=== PATIENT | male | born 1990 | race American Indian/Alaskan Native ===

== ENCOUNTER 2019-02-16 17:42 | Emergency (ER) | payer BC, OTHER ==
[2019-02-16 18:02] VITALS: BP 132/87
--- NOTE | 2019-02-16 18:02 | Emergency Department Report ---
Chief Complaint: Headache Stated Complaint: HEADACHE X 1DAY/DIZZY Time Seen by Provider: 02/16/19 17:59 - HPI History of Present Illness: pt presents to the frontal DEAL that began last night congestion x 2 weeks rhinorrhea no fever has not taken anything for the DEAL or for congestion/rhinorrhea no PCP (+) smoker MSE screening note: Focused history and physical exam performed. ED Disposition for MSE Condition: Stable
[2019-02-16] MEDS ORDERED: DECADRON IM ONE (19:33)
[2019-02-16] MEDS ORDERED: REGLAN PO ONE (19:34)
[2019-02-16] MEDS ORDERED: BENADRYL PO ONE (19:34)
[2019-02-16] MEDS ORDERED: TYLENOL PO ONE (19:34)
--- NOTE | 2019-02-16 20:19 | Emergency Department Report ---
ED Headache HPI - General Chief Complaint: Headache Stated Complaint: HEADACHE X 1DAY/DIZZY Time Seen by Provider: 02/16/19 17:59 - History of Present Illness Initial Comments: pt presents to the frontal DEAL that began last night congestion x 2 weeks rhinorrhea no fever has not taken anything for the DEAL or for congestion/rhinorrhea no PCP (+) smoker Timing/Duration: other (2 weeks ) Quality: moderate Head Injury Location: frontal Recent Head Trauma: occasional headaches Modifying Factors: improves with: movement, other (activity ) Associated Symptoms: nausea/vomiting, nasal congestion, nasal drainage, other (photophobia ) Allergies/Adverse Reactions: Allergies No Known Allergies Allergy (Unverified 08/04/15 09:32) Home Medications: Ambulatory Orders Promethazine [Phenergan TAB] 25 mg PO Q8HR PRN #15 tab 08/04/15 Ondansetron [Zofran Odt] 4 mg PO Q6H PRN #10 tab.rapdis 09/12/15 Ibuprofen [Motrin 800 MG tab] 800 mg PO Q8HR PRN #30 tablet 09/26/15 traMADol [Ultram 50 MG tab] 50 mg PO Q4HR PRN #15 tablet 09/26/15 HYDROcodone/APAP 5-325 [[place] 5/325] 1 each PO Q6HR PRN #8 tablet 10/23/15 Ondansetron [Zofran Odt] 4 mg SL Q6H PRN #8 tab.rapdis 10/23/15 Acetaminophen [Tylenol Extra Strength] 1,000 mg PO QID PRN #30 tablet 02/16/19 Amoxicillin/Potassium Clav [Augmentin 875-125 Tablet] 1 each PO BID 10 Days #20 tablet 02/16/19 Metoclopramide [Reglan] 10 mg PO Q6H #30 tablet 02/16/19 diphenhydrAMINE [Benadryl CAP] 25 mg PO Q6HR PRN #30 capsule 02/16/19 ED Review of Systems ROS: Stated complaint: HEADACHE X 1DAY/DIZZY Other details as noted in HPI Constitutional: denies: chills, fever Eyes: denies: eye pain, eye discharge, vision change ENT: ear pain, congestion. denies: throat pain Respiratory: denies: cough, shortness of breath, wheezing Cardiovascular: denies: chest pain, palpitations Endocrine: no symptoms reported Gastrointestinal: nausea, vomiting. denies: abdominal pain, diarrhea Genitourinary: denies: urgency, dysuria Musculoskeletal: denies: back pain, joint swelling, arthralgia Skin: denies: rash, lesions Neurological: headache. denies: weakness, numbness, paresthesias, confusion, vertigo Psychiatric: denies: anxiety, depression Hematological/Lymphatic: denies: easy bleeding, easy bruising ED Past Medical Hx - Past Medical History Previous Medical History?: No - Surgical History Past Surgical History?: No - Social History Smoking Status: Unknown if ever smoked Substance Use Type: None - Medications Home Medications: Home Medications Medication Instructions Recorded Confirmed Last Taken Type Promethazine [Phenergan TAB] 25 mg PO Q8HR PRN #15 tab 08/04/15 Unknown Rx Ondansetron [Zofran Odt] 4 mg PO Q6H PRN #10 tab.rapdis 09/12/15 Unknown Rx Ibuprofen [Motrin 800 MG tab] 800 mg PO Q8HR PRN #30 tablet 09/26/15 Unknown Rx traMADol [Ultram 50 MG tab] 50 mg PO Q4HR PRN #15 tablet 09/26/15 Unknown Rx HYDROcodone/APAP 5-325 [[place] 1 each PO Q6HR PRN #8 tablet 10/23/15 Unknown Rx 5/325] Ondansetron [Zofran Odt] 4 mg SL Q6H PRN #8 tab.rapdis 10/23/15 Unknown Rx Acetaminophen [Tylenol Extra 1,000 mg PO QID PRN #30 tablet 02/16/19 Unknown Rx Strength] Amoxicillin/Potassium Clav 1 each PO BID 10 Days #20 tablet 02/16/19 Unknown Rx [Augmentin 875-125 Tablet] Metoclopramide [Reglan] 10 mg PO Q6H #30 tablet 02/16/19 Unknown Rx diphenhydrAMINE [Benadryl CAP] 25 mg PO Q6HR PRN #30 capsule 02/16/19 Unknown Rx ED Physical Exam - General Limitations: No Limitations General appearance: alert, in no apparent distress - Head Head exam: Present: atraumatic, normocephalic - Eye Eye exam: Present: normal appearance, PERRL, EOMI Pupils: Present: normal accommodation - ENT ENT exam: Present: normal exam, normal orophraynx, mucous membranes moist, TM's normal bilaterally, normal external ear exam - Expanded ENT Exam Expanded Ear exam: Present: normal external inspection TM/Canal exam: Erythema: Left TM Mouth exam: Absent: trismus Throat exam: Positive: normal inspection, other (uvula midline no stridor no exudate no lesion ) - Neck Neck exam: Present: normal inspection, full ROM. Absent: tenderness, meningismus, lymphadenopathy, thyromegaly - Respiratory Respiratory exam: Present: normal lung sounds bilaterally. Absent: respiratory distress, wheezes, rhonchi, chest wall tenderness - Cardiovascular Cardiovascular Exam: Present: regular rate, normal rhythm, normal heart sounds. Absent: systolic murmur, diastolic murmur, rubs, gallop - GI/Abdominal GI/Abdominal exam: Present: soft, normal bowel sounds. Absent: tenderness, rebound, bruit, hernia - Rectal Rectal exam: Present: deferred - Extremities Exam Extremities exam: Present: normal inspection, full ROM, normal capillary refill. Absent: tenderness - Back Exam Back exam: Present: normal inspection, full ROM, muscle spasm. Absent: tenderness, CVA tenderness (R), CVA tenderness (L), paraspinal tenderness, rash noted - Neurological Exam Neurological exam: Present: alert, oriented X3, CN II-XII intact, normal gait. Absent: motor sensory deficit, reflexes normal - Psychiatric Psychiatric exam: Present: normal affect, normal mood - Skin Skin exam: Present: warm, dry, intact, normal color. Absent: rash ED Course Vital Signs 02/16/19 02/16/19 18:00 19:46 Temperature 98.6 F Pulse Rate 104 H Respiratory 18 18 Rate Blood Pressure 132/87 O2 Sat by Pulse 99 Oximetry ED Medical Decision Making - Radiology Data Radiology results: report reviewed, image reviewed - Medical Decision Making Patient was resolved . Left AOM /Sinusitis, and Augmentin Tylenol Benadryl Reglan patient referred to [facility]. pt verbalized agreement and understanding of same Critical care attestation.: If time is entered above; I have spent that time in minutes in the direct care of this critically ill patient, excluding procedure time. ED Disposition Clinical Impression: Headache Qualifiers: Headache type: unspecified Headache chronicity pattern: unspecified pattern Intractability: intractable Qualified Code(s): R51 - Headache Sinusitis Qualifiers: Sinusitis location: maxillary Chronicity: acute Recurrence: non-recurrent Qualified Code(s): J01.00 - Acute maxillary sinusitis, unspecified Disposition: - TO HOME OR SELFCARE Is pt being admited?: No Does the pt Need Aspirin: No Condition: Stable Instructions: Acute Headache (ED), Sinusitis (ED) Prescriptions: Amoxicillin/Potassium Clav [Augmentin 875-125 Tablet] 1 each PO BID 10 Days #20 tablet diphenhydrAMINE [Benadryl CAP] 25 mg PO Q6HR PRN #30 capsule PRN Reason: Headache Metoclopramide [Reglan] 10 mg PO Q6H #30 tablet Acetaminophen [Tylenol Extra Strength] 1,000 mg PO QID PRN #30 tablet PRN Reason: Headache Referrals: [facility] [Outside] - 3-5 Days Forms: Work/School Release Form(ED) Time of Disposition: 20:29
== END 2019-02-16 20:33 | disposition home or self-care (01) ==
LOC: ED 17:42
DX: J01.00 Acute maxillary sinusitis, unspecified (principal)
CPT/HCPCS: 96372; 99282; J1100

== ENCOUNTER 2020-03-10 22:41 | Emergency (ER) | payer SELFPAY ==
[2020-03-10 23:57] VITALS: BP 124/93
--- NOTE | 2020-03-11 01:01 | Emergency Department Report ---
ED Lower Extremity HPI - General Chief Complaint: Extremity Injury, Lower Stated Complaint: ANKLE INJURY Time Seen by Provider: 03/11/20 00:34 Source: patient, EMS Mode of arrival: Wheelchair Limitations: No Limitations - History of Present Illness Initial Comments: This is a 29-year-old male presents the emergency department via EMS for evaluation of right ankle pain. Patient was reportedly running and jumping over a fence when he landed on his right ankle wrong. He reports pain is 10 out of 10 aggravated with any movement and weightbearing. He denies any additional injuries. Patient denies any known past medical history, current medication use or known allergies to medications. - Related Data Previous Rx's Medication Instructions Recorded Last Taken Type Promethazine [Phenergan TAB] 25 mg PO Q8HR PRN #15 tab 08/04/15 Unknown Rx Ondansetron [Zofran Odt] 4 mg PO Q6H PRN #10 tab.rapdis 09/12/15 Unknown Rx Ibuprofen [Motrin 800 MG tab] 800 mg PO Q8HR PRN #30 tablet 09/26/15 Unknown Rx traMADoL [Ultram 50 MG tab] 50 mg PO Q4HR PRN #15 tablet 09/26/15 Unknown Rx HYDROcodone/APAP 5-325 [[place] 1 each PO Q6HR PRN #8 tablet 10/23/15 Unknown Rx 5/325] Ondansetron [Zofran Odt] 4 mg SL Q6H PRN #8 tab.rapdis 10/23/15 Unknown Rx Acetaminophen [Tylenol Extra 1,000 mg PO QID PRN #30 tablet 02/16/19 Unknown Rx Strength] Amoxicillin/Potassium Clav 1 each PO BID 10 Days #20 tablet 02/16/19 Unknown Rx [Augmentin 875-125 Tablet] Metoclopramide [Reglan] 10 mg PO Q6H #30 tablet 02/16/19 Unknown Rx diphenhydrAMINE [Benadryl CAP] 25 mg PO Q6HR PRN #30 capsule 02/16/19 Unknown Rx Acetaminophen/Codeine [Tylenol 1 tab PO Q6H PRN #12 tab 03/11/20 Unknown Rx /Codeine # 3 tab] Allergies Allergy/AdvReac Type Severity Reaction Status Date / Time No Known Allergies Allergy Unverified 08/04/15 09:32 ED Review of Systems ROS: Stated complaint: ANKLE INJURY Other details as noted in HPI Comment: All other systems reviewed and negative Constitutional: denies: chills, fever Eyes: denies: eye pain, eye discharge, vision change ENT: denies: ear pain, throat pain Respiratory: denies: cough, shortness of breath, wheezing Cardiovascular: denies: chest pain, palpitations Endocrine: no symptoms reported Gastrointestinal: denies: abdominal pain, nausea, diarrhea Genitourinary: denies: urgency, dysuria Musculoskeletal: as per HPI, arthralgia. denies: back pain, joint swelling Skin: denies: rash, lesions Neurological: denies: headache, weakness, paresthesias Psychiatric: denies: anxiety, depression Hematological/Lymphatic: denies: easy bleeding, easy bruising ED Past Medical Hx - Past Medical History Previous Medical History?: No - Surgical History Past Surgical History?: No - Social History Smoking Status: Current Every Day Smoker - Medications Home Medications: Home Medications Medication Instructions Recorded Confirmed Last Taken Type Promethazine [Phenergan TAB] 25 mg PO Q8HR PRN #15 tab 08/04/15 Unknown Rx Ondansetron [Zofran Odt] 4 mg PO Q6H PRN #10 tab.rapdis 09/12/15 Unknown Rx Ibuprofen [Motrin 800 MG tab] 800 mg PO Q8HR PRN #30 tablet 09/26/15 Unknown Rx traMADoL [Ultram 50 MG tab] 50 mg PO Q4HR PRN #15 tablet 09/26/15 Unknown Rx HYDROcodone/APAP 5-325 [[place] 1 each PO Q6HR PRN #8 tablet 10/23/15 Unknown Rx 5/325] Ondansetron [Zofran Odt] 4 mg SL Q6H PRN #8 tab.rapdis 10/23/15 Unknown Rx Acetaminophen [Tylenol Extra 1,000 mg PO QID PRN #30 tablet 02/16/19 Unknown Rx Strength] Amoxicillin/Potassium Clav 1 each PO BID 10 Days #20 tablet 02/16/19 Unknown Rx [Augmentin 875-125 Tablet] Metoclopramide [Reglan] 10 mg PO Q6H #30 tablet 02/16/19 Unknown Rx diphenhydrAMINE [Benadryl CAP] 25 mg PO Q6HR PRN #30 capsule 02/16/19 Unknown Rx Acetaminophen/Codeine [Tylenol 1 tab PO Q6H PRN #12 tab 03/11/20 Unknown Rx /Codeine # 3 tab] ED Physical Exam - General Limitations: No Limitations General appearance: alert, in no apparent distress, appears intoxicated - Head Head exam: Present: atraumatic, normocephalic - Eye Eye exam: Present: normal appearance, PERRL, EOMI Pupils: Present: normal accommodation - ENT ENT exam: Present: mucous membranes moist - Neck Neck exam: Present: normal inspection - Respiratory Respiratory exam: Present: normal lung sounds bilaterally. Absent: respiratory distress, wheezes, rales, rhonchi, stridor - Cardiovascular Cardiovascular Exam: Present: regular rate, normal rhythm, normal heart sounds. Absent: systolic murmur, diastolic murmur, rubs, gallop - GI/Abdominal GI/Abdominal exam: Present: soft, normal bowel sounds. Absent: distended, tenderness, guarding, rebound, rigid - Rectal Rectal exam: Present: deferred - Extremities Exam Extremities exam: Present: normal inspection, tenderness, joint swelling, other (There is edema and pain to the medial and lateral ankle. There is no tenderness to the lower leg. The compartments are soft. The patient is able to flex and extend the ankle without pain out of proportion to exam. There are normal DP and PT pulses. There is no tenderness of the bilateral knees hips and the pelvis is stable. There is no midline cervical, thoracic or lumbar tenderness. ). Absent: full ROM - Back Exam Back exam: Present: normal inspection - Neurological Exam Neurological exam: Present: alert, oriented X3 - Psychiatric Psychiatric exam: Present: normal affect, normal mood - Skin Skin exam: Present: warm, dry, intact, normal color. Absent: rash ED Course Vital Signs 03/10/20 23:27 Temperature 99.1 F Pulse Rate 110 H Respiratory 18 Rate Blood Pressure 124/93 O2 Sat by Pulse 98 Oximetry - Reevaluation(s) Reevaluation #1: 03/11/20 01:13 Patient continues to try to leave the emergency department. Police Department is here and apparently the patient has a warrant for arrest. Patient was educated that he does have a fracture in his distal fibula and is very important that we splint him and immobilize the fracture. He is an early vascular intact otherwise. 03/11/20 01:16 ED Lower Extremity MDM - Radiology Data Radiology results: image reviewed interpreted by me: There is an oblique mildly displaced fracture of the distal fibula. Does not appear to be fracture of the tibia the medial malleolus or the posterior tibia. This appears to be only due to lateral malleolus fracture. - Medical Decision Making The distal pulses and sensation are intact. Patient was educated that he will need to be splinted in a [place] splint. This was applied by the RN and supervised by me. The neurovascular exam was intact pre-and post application. Patient was advised to not bear weight on his ankle or foot that he would need to follow-up with orthopedics for proper casting and evaluation. He will be given crutches and pain medication. Patient will be given strict return precautions for any change or worsening symptoms. His compartments are soft and he had normal pulses, normal distal sensation, normal color of the foot normal temperature making compartment syndrome unlikely. Patient verbalized understand ing the diagnosis, treatment plan and follow-up instructions and all of his questions were answered. - Differential Diagnosis fracture, strain, sprain Critical care attestation.: If time is entered above; I have spent that time in minutes in the direct care of this critically ill patient, excluding procedure time. ED Disposition Clinical Impression: Closed fibular fracture Qualifiers: Encounter type: initial encounter Fibula location: shaft Fracture morphology: oblique Fracture alignment: displaced Laterality: right Qualified Code(s): S82.431A - Displaced oblique fracture of shaft of right fibula, initial encounter for closed fracture Disposition: TO HOME OR SELFCARE Is pt being admited?: No Does the pt Need Aspirin: No Condition: Stable Instructions: Ankle Fracture (ED) Prescriptions: Acetaminophen/Codeine [Tylenol /Codeine # 3 tab] 1 tab PO Q6H PRN #12 tab PRN Reason: Pain , Severe (7-10) Referrals: KLEBER BARNES MD [Staff Physician] - 3-5 Days AMINATA KAMARA DPM [Staff Physician] - 3-5 Days Time of Disposition: :
[2020-03-11] MEDS ORDERED: KETOROLAC 30 MG/1 ML INJ IM ONE (01:15)
[2020-03-11] MEDS ORDERED: HYDROcodone/ACETAMINOPHEN 5-325 MG TAB PO ONE (01:15)
--- NOTE | 2020-03-11 01:19 | XRay Report ---
RIGHT TIBIA FIBULA 2 VIEWS 0037 INDICATION: Injured right leg and ankle jumping a fence tonigh COMPARISON: None available. FINDINGS: Artifact overlies the images. Soft tissue swelling is seen diffusely at the ankle. Ligament ous calcifications are seen medially at the knee. Patellofemoral degenerative changes are noted. No p roximal fractures are seen. An oblique fracture is seen of the distal fibular metaphysis as described below. RIGHT ANKLE 3 VIEWS 0037 INDICATION: Injured right leg and ankle jumping a fence tonigh COMPARISON: None available. FINDINGS: Artifact overlies the images. Views are centered above the ankle. An oblique fracture of the distal fibular metaphysis is seen with mild overriding and mild posterior and lateral displacement and slight medial angulation. No other fractures are seen. No dislocation is noted. Diffuse soft tissue swelling is seen. Signer Name: Davy Montano MD Signed: 03/11/2020 1:15 AM Workstation Name: [id number]
== END 2020-03-11 02:22 | disposition home or self-care (01) ==
LOC: ED 22:41
DX: S82.431A Displaced oblique fracture of shaft of right fibula, initial encounter for closed fracture (principal); F17.200 Nicotine dependence, unspecified, uncomplicated; Z79.899 Other long term (current) drug therapy; X58.XXXA Exposure to other specified factors, initial encounter; Y93.89 Activity, other specified; Y92.89 Other specified places as the place of occurrence of the external cause; Y99.8 Other external cause status
CPT/HCPCS: 29505; 73590; 73610; 99283; J1885